=== PATIENT | female | born 1955 | race Caucasian/White ===

== ENCOUNTER 2017-06-02 17:57 | Emergency (ER) | payer OTHER ==
[~2017-06-02] VITALS: Ht 162.6 cm; Wt 73.9 kg
[~2017-06-02 17:57] MED LIST: ACIPHEX20 MG PO; ALOE VERA CONCE1 CAP PO; ASPIR 8181 MG PO; BYDUREON2 M1 SQ; CLONAZEPAM0.5 MG PO; COLACE100 MG PO; COZAAR100 MG PO; DUONEB3 ML; ESTRACE1 MG PV; GLUCOPHAGE XR500 MG PO; HUMALOG PEN100 U/ML SC; LANTUS SOLOS100 U/M1 SQ; MAGNESIUM OXID400 MG PO; NOR5 PO; OSPHENA60 MG PO; PROBIOTIC & ACI1 CAP PO; QVAR0.04 MG/Ac IH; SYNTHROID0.112 MG PO; UNIFIBER3 GM/4 GM PO; VYTORIN1 TA3 PO; XARELTO15 M1 PO
[2017-06-02 20:11] VITALS: BP 138/109
== END 2017-06-02 20:11 | disposition home or self-care (01) ==
LOC: ED 17:57
DX: J06.9 Acute upper respiratory infection, unspecified (principal); M79.7 Fibromyalgia; E78.00 Pure hypercholesterolemia, unspecified; E03.9 Hypothyroidism, unspecified; E11.22 Type 2 diabetes mellitus with diabetic chronic kidney disease; I12.9 Hypertensive chronic kidney disease with stage 1 through stage 4 chronic kidney disease, or unspecified chronic kidney disease; N18.3 Chronic kidney disease, stage 3 (moderate); J45.909 Unspecified asthma, uncomplicated

== ENCOUNTER → 2017-07-18 | Outpatient (CLI) | payer OTHER | END | disposition home or self-care (01) | LOC: US 14:00 | PROC: B44FZZZ Ultrasonography of Right Lower Extremity Arteries (ICD-10-PCS; principal; 2017-07-18) | DX: I73.89 Other specified peripheral vascular diseases (principal) ==

== ENCOUNTER → 2018-07-03 | Outpatient (CLI) | payer OTHER | END | disposition home or self-care (01) | LOC: MI 09:59 | PROC: BR30ZZZ Magnetic Resonance Imaging (MRI) of Cervical Spine (ICD-10-PCS; principal; 2018-07-03) | DX: R20.0 Anesthesia of skin (principal) ==

== ENCOUNTER → 2018-08-03 | Outpatient (CLI) | payer OTHER | END | disposition home or self-care (01) | LOC: MI 12:42 | PROC: BR37ZZZ Magnetic Resonance Imaging (MRI) of Thoracic Spine (ICD-10-PCS; principal; 2018-08-03) | DX: M51.34 Other intervertebral disc degeneration, thoracic region (principal) ==

== ENCOUNTER → 2018-08-31 | Outpatient (CLI) | payer OTHER | END | disposition home or self-care (01) | LOC: US 17:21 | PROC: BR39ZZZ Magnetic Resonance Imaging (MRI) of Lumbar Spine (ICD-10-PCS; principal; 2018-08-31) | PROC: BW4GZZZ Ultrasonography of Pelvic Region (ICD-10-PCS; 2018-08-31) | DX: M54.16 Radiculopathy, lumbar region (principal); R10.2 Pelvic and perineal pain ==

== ENCOUNTER 2019-07-16 17:07 | Inpatient (IN) | payer OTHER ==
[~2019-07-16] VITALS: Ht 162.6 cm; Wt 94.3 kg
[2019-07-16 17:21] VITALS: Ht 162.6 cm; Wt 94.3 kg
--- NOTE | 2019-07-16 17:27 | NUR ---
EKG IN PROGRESS
--- NOTE | 2019-07-16 19:22 | NUR ---
DR. JURADO AT BEDSIDE.
--- NOTE | 2019-07-16 19:32 | NUR ---
PT PRESENTS TO ED WITH C/C OF DIZZINESS BEGINNING TODAY AT 3PM WHILE IN THE CAR. PT REPORTS SHE HAD JUST FINISHED LUNCH AND WAS IN THE CAR AND BEGAN FEELING DIZZINESS, WEAKNESS TO ALL EXTREMITIES, AND NUMBNESS/TINGLING IN HER FINGER TIPS. PT DENIES ANY CP AT THIS TIME AND AT THE TIME OF THE "DIZZY SPELL". PT IS SPEAKING IN FULL CLEAR SENTENCES, SKIN COLOR NORMAL FOR ETHINCITY, AAOX4, RESP E/U. NO FACIAL DROOP NOTED. PERRLA. PT DENIES ANY OTHER SYMPTOMS AT THIS TIME. PT PLACED ON FULL MAP CLERK AND PULSE OXIMETRY. EQUAL ENGINEER ASSISTANT AND STRENGTH TO BILATERAL UPPER AND LOWER EXTREMITIES. CALL LIGHT IN REACH. NAD NOTED. MSE COMPLETED BY DR. JURADO. AT BEDSIDE.
--- NOTE | 2019-07-16 19:35 | NUR ---
PT REQUESTING TO USE THE RESTROOM. AMBULATED WITH STEADY GAIT TO RESTROOM AND BACK TO [facility] WITHOUT INCIDENT, ACCOMPANIED BY .
[2019-07-16 19:52] LABS: BASOPHIL % 0.6 % (0-2); PLATELET COUNT 268 x10^3mcL (130-400)
--- NOTE | 2019-07-16 19:52 | NUR ---
PT MEDICATED PER MD ORDER. PT VERBALIZED UNDERSTANDING OF MEDICATION PRIOR TO ADMINISTRATION.
--- NOTE | 2019-07-16 19:56 | NUR ---
PT TAKEN TO CT, NAD NOTED.
[2019-07-16 20:00] LABS: CREATININE SERUM 1.6 mg/dL (0.6-1.0); POTASSIUM SERUM 3.9 mmol/L (3.5-5.1)
[2019-07-16 20:04] LABS: ALBUMIN 3.7 g/dL (3.4-5.0); BILIRUBIN TOTAL 0.4 mg/dL (0.20-1.00); MAGNESIUM 2.2 mg/dL (1.8-2.4); TOTAL PROTEIN, SERUM 7.7 g/dL (6.4-8.2)
--- NOTE | 2019-07-16 20:05 | NUR ---
PT RETURNED FROM CT, REPORTS FEELING DIZZY AGAIN AFTER HAVING TO LAY DOWN FOR CT. LIGHTS TURNED OFF IN PT'S ROOM FOR PT COMFORT.
--- NOTE | 2019-07-16 20:43 | NUR ---
PT SITTING UP IN [facility], LOOKING AT HER PHONE ALONGSIDE HER , NILESH NOTED.
--- NOTE | 2019-07-16 21:05 | NUR ---
AT BEDSIDE FOR NEURO/TELE CONSULT.
--- NOTE | 2019-07-16 21:34 | NUR ---
DR. JURADO AT BEDSIDE.
[2019-07-16 21:48] LABS: microscopic required? NO
--- NOTE | 2019-07-16 21:49 | NUR ---
PT MEDICATED PER MD ORDER. PT VERBALIZED UNDERSTANDING OF MEDICATION PRIOR TO ADMINISTRATION.
[2019-07-16] MEDS ORDERED: GLUCOPHAGE XR500 MG PO (21:54)
[2019-07-16] MEDS ORDERED: TRULICITY1.5 MG/0.5 SC (21:54)
[2019-07-16] MEDS ORDERED: NEURONTIN600 MG PO (21:54)
[2019-07-16] MEDS ORDERED: SAVELLA50 M1 PO (21:55)
[2019-07-16 21:56] LABS: UA SPECIFIC GRAVITY <=1.005 (1.005-1.035); urine erythrocyte NEGATIVE (NEGATIVE)
[2019-07-16] MEDS ORDERED: CARDIZEM CD240 MG PO (21:56)
[2019-07-16] MEDS ORDERED: VOLTAREN100 GM TP (21:56)
[2019-07-16] MEDS ORDERED: COZAAR100 MG PO (21:56)
[2019-07-16] MEDS ORDERED: ATENOLOL25 MG PO (21:57)
[2019-07-16] MEDS ORDERED: SYNTHROID0.1 MG PO (21:57)
[2019-07-16] MEDS ORDERED: VYTORIN1 TA3 PO (21:57)
[2019-07-16] MEDS ORDERED: MAGNESIUM OXID400 MG PO (21:58)
[2019-07-16] MEDS ORDERED: ZANTAC 300300 MG PO (21:58)
--- NOTE | 2019-07-16 22:02 | NUR ---
REPORT CALLED TO RAIFQ REILLY TO ASSUME CARE FOR PT.
[2019-07-16 22:11] LABS: AMPHETAMINE QUAL UR NONE DETECTED (See below)
[2019-07-16 22:17] LABS: T3 TOTAL 0.66 ng/mL
[2019-07-16 22:23] LABS: FREE T4 1.14 ng/dL (0.76-1.46); FREE THYROXINE INDEX 4.1 ug/dL (1.4-4.5); T4(THYROXINE) 10.5 ug/dL (4.7-13.3)
--- NOTE | 2019-07-16 22:30 | NUR ---
RECEIVED PT FROM ER VIA GURRAFY ACCOMPANIED BY RN AND EMT. PT IS A/OX4. SPEECH IS CLEAR. ABLE TO MAKE NEEDS KNOWN/FOLLOW SIMPLE COMMANDS. PERRLA NOTED BILAT, BRISK 3 MM. PT C/O DIZZINESS AT THIS TIME. BREATHING IS E/U ON RA, SPO2 96%. LUNGS SOUND CLEAR TO BUL AND DIMIN TO BLL. SYMMETRICAL CHEST EXPANSION NOTED. PT STS SHE FEELS SOB AT TIMES. S1/S2 HEART SOUNDS AUSCULTATED. CHEST WALL EQUAL AND SYMMETRICAL. DENIES ANY CP. PT ON TELE #21 READING SR WITH HR 80, NIBP 148/88 MAP 108. PALPABLE PULSES X4 EXTREMITIES. SKIN IS WARM AND DRY. NO EDEMA NOTED. CAP REFILL <3 SECS. LAC IV INTACT/SECURED. COLOR CONSISTENT WITH ETHNICITY. MILD GEN WEAKNESS. PT IS AMBULATORY. ABD IS SOFT, ROUND, NONTENDER TO PALPATION. BOWEL SOUNDS ACTIVE X4 QUADRANTS. PT STS SHE HAD A SMALL LOOSE BROWN BM EARLIER TODAY. INSULIN PUMP NOTED TO R ABD. PT VOIDS FREELY YELLOW COLORED URINE. SKIN IS INTACT. PT ABLE TO REPOSITION SELF INDEPENDENTLY. PT ORIENTED TO ROOM AND USE OF CALL LIGHT. BED IN LOW POSTIION. CALL LIGHT IN REACH. WILL CONT TO MONITOR
[2019-07-16 22:41] VITALS: BP 148/88
--- NOTE | 2019-07-17 01:50 | NUR ---
PT IS SLEEPING, EASILY AROUSABLE. RISE AND FALL OF CHEST SYMMETRIC. NO S/S OF ACUTE DISTRESS NOTED. IV INTACT/SECURED, NO S/S OF INFILTRATION NOTED. BED IN LOW POSITION. CALL LIGHT IN REACH. WILL CONT TO MONITOR
[2019-07-17 04:53] VITALS: BP 128/80
--- NOTE | 2019-07-17 06:10 | NUR ---
PT IS AWAKE/ALERT. DENIES ANY DIZZINESS AT THIS TIME. BREATHING IS E/U ON RA. RISE AND FALL OF CHEST SYMMETRIC. LAC IV INTACT/SECURED, INFUSING NS @ 70 ML/HR WITH NO S/S OF INFILTRATION NOTED. BED IN LOW POSITION. CALL LIGHT IN REACH.
[2019-07-17 06:44] LABS: BASOPHIL % 0.6 % (0-2); PLATELET COUNT 220 x10^3mcL (130-400); RED CELL DISTRIBUTION WIDTH 13.6 % (11.5-14.5)
[2019-07-17 06:59] LABS: CARBON DIOXIDE 29.9 mmol/L (21-32); CREATININE SERUM 1.3 mg/dL (0.6-1.0); MAGNESIUM 2.3 mg/dL (1.8-2.4); PHOSPHOROUS 3.5 mg/dL (2.5-4.9); POTASSIUM SERUM 4.2 mmol/L (3.5-5.1)
--- NOTE | 2019-07-17 07:02 | NUR ---
REPORT GIVEN TO BULL CONROY. ALL QUESTIONS/CONCERNS ADDRESSED. ENDORSING ALL CARE
--- NOTE | 2019-07-17 07:30 | NUR ---
RECEIVED PATIENT IN BED, AWAKE ALERT AND ORIENTED. PER PATIENT SHE JUST FEELS VERY TIRED FROM LACK OF SLEEP, BUT NO DIZZINESS NOTED. TELE 21 SR. SPEECH CLEAR DENIES ANY H/A AT THIS TIME. IVFINFUSING WELL TO LEFT A/C. AMBULATES TO THE BATHROOM AD MANJEET. INSULIN PUMP NOTED ON RT ABD, WITH SUGAR MONITOR NOTED ON RT UPPER ARN. NO ACUTE DISTRESS NOTED.
[2019-07-17 08:07] VITALS: BP 142/88
[2019-07-17 12:29] VITALS: BP 169/99
--- NOTE | 2019-07-17 13:08 | NUR ---
ECHO/BUBBL PENDING-HAVING LUNCH
--- NOTE | 2019-07-17 15:40 | NUR ---
Contrst echocardiography ( echo with bubble study) was performed at this time, patient jw. well with procedure, denies any discomfort.
[2019-07-17 15:58] VITALS: BP 163/94
--- NOTE | 2019-07-17 16:12 | NUR ---
PATIENT'S PLAN OF CARE WAS DISCUSSED AND REVIEWED WITH COLLISION MECHANIC:NURIA RUIZ. I HAVE REVIEWED THE DATA COLLECTION BY COLLISION MECHANIC (NAME):BULL RUIZ. ENTERED ON (DATE/TIME):07/17/19 I CONCUR WITH THE DATA AND ANY EXCEPTIONS OR COMMENTS ARE LISTED BELOW:
--- NOTE | 2019-07-17 17:31 | NUR ---
PATIENT HAS BEEN OOB AND AMBULATED WITH P.T. THIS AFTERNOON. TOLERATED WELL. PATIENT'S AT BEDSIDE. PATIENT DENIES ANY H/A OR DIZZINESS, PER PATIENT SHE DOES FEEL "FOGGY" AT TIMES. ECHO BUBBLE WAS DONE THIS AFTERNOON. USV AND CAROTID US WAS DONE WELL. IVF HEPLOCKED ORDERED. NO ACUTE DISTRESS NOTED. DR BRISCOE AWARE OF PATIENT'S B/P. NEW ORDER RECEIVED FOR MEDICATION.
[2019-07-17 19:19] VITALS: BP 145/92
--- NOTE | 2019-07-17 22:38 | NUR ---
RECEIVED PT SITTING ON THE EDGE OF THE BED TALKING TO HER FAMILY NO ACUTE DISTRESS NOTED PER PT SHES LESS FOGGY THIS EVENING AAOX4,PT'S ON TEHE NUMBER 21 THAT SHOWS NSR , DENY CHEST PAIN AT THE MOMENT , PT HAS INSULIN PUMP WITH HUMOLIN INSULIN AND INSULIN MONITOR DEVICE TO THE RIGHT UPPER ARM , BLOOD GLUCOSE AT 2100 WAS 271 PT GAVE HESELF 9UNITS OF INSULIN . HL INTACT FLUSHING WELL .
--- NOTE | 2019-07-18 02:11 | NUR ---
IN BED WITH EYES CLOSED .
[2019-07-18 05:33] VITALS: BP 115/81
--- NOTE | 2019-07-18 06:47 | NUR ---
ALL DUE MEDS GIVEN NO REACTION NOTED, PT'S C/O HEADACHE PAGED DR CARTAGENA , TELE NSR .
--- NOTE | 2019-07-18 07:00 | NUR ---
RECEIVED REPORT FROM RAMOS CONTRERAS AT BEDSIDE, PT RESTING IN BED IN NO ACUTE DISTRESS
--- NOTE | 2019-07-18 07:47 | NUR ---
PT RESTING IN BED, IN NO ACUTE DISTRESS, VERBAL, ABLE TO MAKE NEEDS KNOWN, NO FACIAL DROOP/SLURRED SPEECH, RESP EVEN, RA, TELE #21, NSR, HR-68, SEE SHIFT ASSESSMENT, DENIED PAIN/DISCOMFORT, DENIED CP/PALPITATION, DENIED SOB/COUGH, IV PATENT AND FLUSING WELL, DRESING, CDI, ALL NEEDS ADDRESSED AT THIS TIME, SAFETY PROTOCOL FOLLOWED, CONTINUE TO MONITOR
[2019-07-18 08:40] VITALS: BP 144/82
[2019-07-18 08:43] LABS: BASOPHIL % 0.6 % (0-2); PLATELET COUNT 213 x10^3mcL (130-400)
[2019-07-18 08:59] LABS: CALCIUM 9.8 mg/dL (8.5-10.1); CARBON DIOXIDE 30.3 mmol/L (21-32); CREATININE SERUM 1.3 mg/dL (0.6-1.0); MAGNESIUM 2.1 mg/dL (1.8-2.4); PHOSPHOROUS 3.6 mg/dL (2.5-4.9); POTASSIUM SERUM 4.5 mmol/L (3.5-5.1)
--- NOTE | 2019-07-18 09:11 | NUR ---
AM MEDs GIVEN PER MD ORDER VIA EMAR, TOLERATED WELL, NO ASE NOTED AT THIS ITME, EDUCATED PT R/T MED, ASE AND MONITOR, VERBALLY UNDERSTANDING, ALL NEEDS ADDRESSED AT THIS TIME, SAFETY PROTOCOL FOLLOWED, CONTINUE TO MONITOR
--- NOTE | 2019-07-18 10:08 | NUR ---
SEEN BY DR ALCALA AND DR BRISCOE, QUESTION ASKED AND ANSWERED, NO FURTHER CONCERN NEEDED WHEN ASKED, ALL NEEDS ADDRESSED, PT SITTING IN CHAIR WATCHING TV IN NO ACUTE DISTRESS, SAFETY PROTOCOL FOLLOWED, CONTINUE TO MONITOR
[2019-07-18 10:31] VITALS: BP 144/82
[2019-07-18 12:03] VITALS: BP 155/82
[2019-07-18] MEDS ORDERED: HYDRALAZINE HCL25 MG PO (13:19)
--- NOTE | 2019-07-18 14:37 | NUR ---
DC PAPER SIGNED AND KEPT IN CHART, IV REMOVED, IV CATH TIP PATENT, NO ACTIVE BLEEDING NOTED, TELE REMOVED AND RETURNED TO [facility], QUESTION ASKED AND ANSWERED, NO FURTHER CONCERN NEEDED WHEN ASKED, EDUCATE PT R/T NEW PRESCRIPTION, ASE AND MONITOR, VERBALLY UNDERSTANDING, SABINABDN AT BEDSIDE, PT MADE AWARE OF ARRANGED APPOINTMENT W/ PCP AND SAID IT'S HER RESPONSIBILITY TO F/U W/ PCP, PT SAID WILL STIP BY [facility] PRIOR GOING HOME FOR MEDs, PT MADE AWARE OF BEING ASSISTED TO LOBBY BY NURSING STAFFS VIA WC, PT DC HOME W/ . PT IN NO ACUTE DISTRESS
== END 2019-07-18 14:49 | disposition home or self-care (01) | DRG 73 ==
LOC: ED 17:07 → DU 21:34
PROVIDERS: Emergency Medicine; Internal Medicine; ADMIT Internal Medicine
DX: G90.8 Other disorders of autonomic nervous system (principal); N17.0 Acute kidney failure with tubular necrosis; I12.9 Hypertensive chronic kidney disease with stage 1 through stage 4 chronic kidney disease, or unspecified chronic kidney disease; E11.22 Type 2 diabetes mellitus with diabetic chronic kidney disease; E78.00 Pure hypercholesterolemia, unspecified; E03.9 Hypothyroidism, unspecified; K21.9 Gastro-esophageal reflux disease without esophagitis; J45.909 Unspecified asthma, uncomplicated; M79.7 Fibromyalgia; F32.9 Major depressive disorder, single episode, unspecified; E11.65 Type 2 diabetes mellitus with hyperglycemia; Z83.3 Family history of diabetes mellitus; Z82.49 Family history of ischemic heart disease and other diseases of the circulatory system; Z82.3 Family history of stroke; F41.9 Anxiety disorder, unspecified
CPT/HCPCS: 82962; 84439; G0378; J2405; J7030; J8597; Q0092

== ENCOUNTER → 2019-08-03 | Outpatient (CLI) | payer OTHER ==
[~2019-08-03] MED LIST changes: +ATENOLOL25 MG PO; +CARDIZEM CD240 MG PO; +HYDRALAZINE HCL25 MG PO; +NEURONTIN600 MG PO; +SAVELLA50 M1 PO; +SYNTHROID0.1 MG PO; +TRULICITY1.5 MG/0.5 SC; +VOLTAREN100 GM TP; +ZANTAC 300300 MG PO
== END | disposition home or self-care (01) ==
LOC: US 13:37
DX: I12.9 Hypertensive chronic kidney disease with stage 1 through stage 4 chronic kidney disease, or unspecified chronic kidney disease (principal)

== ENCOUNTER → 2019-08-06 | Outpatient (CLI) | payer OTHER | END | disposition home or self-care (01) | LOC: US 09:42 | PROC: BT4JZZZ Ultrasonography of Kidneys and Bladder (ICD-10-PCS; principal; 2019-08-06) | DX: I12.9 Hypertensive chronic kidney disease with stage 1 through stage 4 chronic kidney disease, or unspecified chronic kidney disease (principal); I10 Essential (primary) hypertension ==

== ENCOUNTER → 2019-10-03 | Outpatient (CLI) | payer OTHER ==
[2019-10-03 12:11] LABS: ALBUMIN 3.6 g/dL (3.4-5.0); BILIRUBIN TOTAL 0.38 mg/dL (0.20-1.00); CARBON DIOXIDE 31.2 mmol/L (21-32); CREATININE SERUM 1.3 mg/dL (0.6-1.0); FREE T4 1.09 ng/dL (0.76-1.46); POTASSIUM SERUM 4.6 mmol/L (3.5-5.1); TOTAL PROTEIN, SERUM 7.3 g/dL (6.4-8.2)
[2019-10-03 12:18] LABS: CHOLESTEROL/HDL RATIO 2.8
== END | disposition home or self-care (01) ==
LOC: MA 10:15
PROVIDERS: Internal Medicine
DX: I12.9 Hypertensive chronic kidney disease with stage 1 through stage 4 chronic kidney disease, or unspecified chronic kidney disease (principal); E11.65 Type 2 diabetes mellitus with hyperglycemia; E11.29 Type 2 diabetes mellitus with other diabetic kidney complication; Z12.11 Encounter for screening for malignant neoplasm of colon
CPT/HCPCS: 77067; 84439

== ENCOUNTER → 2020-01-04 | Outpatient (CLI) | payer OTHER ==
[2020-01-04 15:09] LABS: ALBUMIN 3.5 g/dL (3.4-5.0); BILIRUBIN TOTAL 0.7 mg/dL (0.20-1.00); CALCIUM 9.2 mg/dL (8.5-10.1); CARBON DIOXIDE 30.4 mmol/L (21-32); CREATININE SERUM 1.3 mg/dL (0.6-1.0); POTASSIUM SERUM 4.4 mmol/L (3.5-5.1); TOTAL PROTEIN, SERUM 6.9 g/dL (6.4-8.2)
== END | disposition home or self-care (01) ==
LOC: US 14:00
PROVIDERS: Internal Medicine
PROC: BW4GZZZ Ultrasonography of Pelvic Region (ICD-10-PCS; principal; 2020-01-04)
DX: R10.2 Pelvic and perineal pain (principal)